=== PATIENT | female | born 1965 | race African-American/Black ===

== ENCOUNTER 2020-02-13 07:16 | Outpatient (NON) | payer OTHER, SELFPAY ==
[2020-02-13 19:22] LABS: SARS-CoV-2 RNA PCR Positive
== END 2020-02-13 07:17 ==
PROVIDERS: Visit Provider Clinical Nurse Specialist
DX: U07.1 COVID-19 (principal)
CPT/HCPCS: 87635; C9803; U0003

== ENCOUNTER → 2020-05-06 14:35 | Outpatient (CLI) | payer OTHER, SELFPAY ==
--- NOTE | ~2020-05-06 | MM_ITS ---
EXAMINATION: MM screening angella BI w geovanny HISTORY: Screening TECHNIQUE: Craniocaudal and mediolateral oblique 3-D tomosynthesis images were obtained and synthetic 2-D images were generated. CAD analysis was submitted and interpreted. COMPARISON: Comparison to multiple prior studies sequentially, with oldest reviewed study dated 06/30. BREAST PARENCHYMAL COMPOSITION: There are scattered areas of fibroglandular density. FINDINGS: There is no evidence of suspicious mass, calcification, or architectural distortion to sugg est malignancy in either breast. There has been no suspicious interval change. IMPRESSION: 1. No mammographic evidence of malignancy. 2. Recommend routine screening mammography in one year. BI-RADS Category 1: Negative Reviewed, dictated and finalized at location A.
== END ==
PROVIDERS: PCP Internal Medicine; Visit Provider Nurse Practitioner Obstetrics & Gynecology
DX: Z12.31 Encounter for screening mammogram for malignant neoplasm of breast (principal)
CPT/HCPCS: 77063; 77067

== ENCOUNTER → 2020-06-30 09:40 | Outpatient (CLI) | payer OTHER, SELFPAY ==
--- NOTE | ~2020-06-30 | XR_ITS ---
XR shoulder LT min 2V 06/30/2020 10:19 INDICATION: Left shoulder pain. PROCEDURE: 4 views left shoulder COMPARISON: FINDINGS: Fracture, dislocation or subluxation is not identified. The soft tissues appear within norm al limits. No foreign bodies are identified. IMPRESSION: 1: NO ACUTE BONE OR JOINT ABNORMALITY IDENTIFIED. Reviewed, dictated and finalized at Location A. Reviewed, dictated and finalized at location B. TREATER
== END ==
PROVIDERS: PCP Internal Medicine; Visit Provider Nurse Practitioner
DX: M25.512 Pain in left shoulder (principal)
CPT/HCPCS: 73030

== ENCOUNTER → 2020-08-19 16:59 | Outpatient (CLI) | payer OTHER, SELFPAY ==
--- NOTE | ~2020-08-19 | DEXA_ITS ---
Bone Density Report Name: José Cornejo Age: 54 Sex: Female Ethnicity: Black Date of : 1965 Indication: postmenopausal; screening for osteoporosis; height loss; asthma or emphysema; hysterectomy; Referring Provider: Clarita Wilson Study: Bone densitometry was performed. Exam Date: August 19, 2020 Accession number: [id number] Bone Density: Region BMD T-score Z-score Classification AP Spine (L1, L2, L3) 1.198 1.6 1.8 Normal Femoral Neck (Left) 1.146 2.7 2.1 Normal Total Hip (Left) 1.206 2.2 1.6 Normal Femoral Neck (Right) 1.164 2.8 2.2 Normal Total Hip (Right) 1.240 2.4 1.8 Normal Total Hip Mean 1.223 2.3 1.7 Normal World Health Organization criteria for BMD impression classify patients as: Normal (T-score at or above -1.0), Osteopenia (T-score between -1.0 and -2.5), or Osteoporosis (T-score at or below -2.5). 10-year Fracture Risk: FRAX not reported because: All T-scores for Spine Total, Hip Total, Femoral Neck at or above -1.0 Clinical Information Provided by Patient: Has used the following medications: Vitamin D, Calcium Has the following medical conditions: Asthma or Emphysema, Hysterectomy Patient maximum height was 69 Menopause Age: 46 Drinks caffeinated beverages Onset of menses at age 9 Number of children 4 Impression: The patient has normal bone mass. Discussion: BONE DENSITY IS ABOVE THE MINIMUM DESIRABLE LEVEL AT ALL SKELETAL SITES TESTED. This patient?s bone mineral density is above the minimum desirable level (T-score -1.0 or better) at all sites measured. The patient should follow a healthful lifestyle (good nutrition with adequate calcium and vitamin D, and appropriate weight-bearing exercise). Follow-Up: Consider repeating this study in 5 years or sooner if there is some new clinical indication. Reported by: ANAMIKA on 08/19/2020 5:28:00 PM. Reviewed, dictated and finalized at location AOrly LENNON
== END ==
PROVIDERS: Visit Provider Nurse Practitioner
DX: Z78.0 Asymptomatic menopausal state (principal)
CPT/HCPCS: 77080

== ENCOUNTER → 2021-07-21 15:56 | Outpatient (CLI) | payer OTHER, SELFPAY ==
--- NOTE | ~2021-07-21 | MM_ITS ---
EXAMINATION: MM screening angella BI w geovanny HISTORY: Screening TECHNIQUE: Craniocaudal and mediolateral oblique 3-D tomosynthesis images were obtained and synthetic 2-D images were generated. CAD analysis was submitted and interpreted. COMPARISON: Comparison to multiple prior studies sequentially, with oldest reviewed study dated 08/18. BREAST PARENCHYMAL COMPOSITION: There are scattered areas of fibroglandular density. FINDINGS: There is a new focal asymmetry in the upper outer quadrant of the left breast. The right br east is stable without evidence for malignancy. IMPRESSION: 1. New focal left breast asymmetry, upper outer quadrant. 2. Additional mammographic views and possible breast ultrasound are recommended. BI-RADS Category 0: Incomplete: Needs additional imaging evaluation. Reviewed, dictated and finalized at location A. ER PLANT SUPERVISOR IMPRESSION: 1. New focal left breast asymmetry, upper outer quadrant. 2. Additional mammographic views and possible breast ultrasound are recommended . BI-RADS Category 0: Incomplete: Needs additional imaging evaluation.
== END ==
PROVIDERS: PCP Internal Medicine; Visit Provider Internal Medicine
DX: Z12.31 Encounter for screening mammogram for malignant neoplasm of breast (principal); R92.8 Other abnormal and inconclusive findings on diagnostic imaging of breast
CPT/HCPCS: 77063; 77067

== ENCOUNTER → 2021-07-27 09:40 | Outpatient (CLI) | payer OTHER, SELFPAY ==
--- NOTE | ~2021-07-27 | MMUS_ITS ---
EXAMINATION: MM diagnostic angella LT w geovanny, US breast LT limited HISTORY: Follow-up left breast asymmetry TECHNIQUE: Additional 3-D tomosynthesis images of the left breast were performed and synthetic 2-D im ages were generated. CAD analysis was submitted and interpreted. High resolution Limited left breast ultrasound was performed. COMPARISON: 07/21/2021 BREAST PARENCHYMAL COMPOSITION: Breast composed of scattered areas of fibroglandular density. FINDINGS: MAMMOGRAPHIC FINDINGS: The focal asymmetry laterally in the left breast compresses with spot views. No suspicious masses, ca lcifications or architectural distortion are identified to suggest malignancy. ULTRASOUND: Limited left breast ultrasound: Normal heterogeneous echotexture in the upper outer quadrant of the l eft breast. IMPRESSION: 1. No evidence for malignancy in the left breast. 2. Routine yearly screening mammogram and regular clinical breast examination are recommended. BI-RADS Category 1: Negative Reviewed, dictated and finalized at location A. EM ADMIN IMPRESSION: 1. No evidence for malignancy in the left breast. 2. Routine yearly screening mammogram and regular clinical breast examination a re recommended. BI-RADS Category 1: Negative
== END ==
PROVIDERS: PCP Internal Medicine; Visit Provider Internal Medicine
DX: R92.8 Other abnormal and inconclusive findings on diagnostic imaging of breast (principal)
CPT/HCPCS: 76642; 77061; 77065; G0279

== ENCOUNTER 2022-06-15 14:57 | Outpatient (CLI) | payer OTHER, SELFPAY ==
[2022-06-15 16:49] LABS: Anion Gap 12 mmol/L (8-16); Blood Urea Nitrogen 10 mg/dL (7-17); Calcium 10.1 mg/dL (8.4-10.2); Carbon Dioxide 28 mmol/L (22-30); Chloride 100 mmol/L (98-107); Estimated Glomerular Filt Rate > 60; Glucose 166 mg/dL (65-110); HDL Direct 59 mg/dL; Potassium 3.6 mmol/L (3.4-5.0); Sodium 140 mmol/L (137-145)
[2022-06-15 17:00] LABS: LDL Cholesterol Direct 53 mg/dL
[2022-06-15 17:22] LABS: Thyroid Stimulating Hormone 0.928 uIU/mL (0.465-4.680)
[2022-06-15 17:37] LABS: Creatinine Urine 35.2 mg/dL
[2022-06-15 18:09] LABS: Microalbumin Urine Random < 6.0 mg/L (0-16.7)
[2022-06-15 18:10] LABS: MALB Creatinine Ratio < 17.0 mg/g (0-30)
== END 2022-06-15 14:58 | disposition home or self-care (01) ==
LOC: ANHWCLAB 14:59
PROVIDERS: PCP Internal Medicine; Visit Provider Internal Medicine Endocrinology, Diabetes & Metabolism
DX: E78.5 Hyperlipidemia, unspecified (principal); E11.65 Type 2 diabetes mellitus with hyperglycemia; Z78.0 Asymptomatic menopausal state
CPT/HCPCS: 36415; 80048; 82043; 82607; 83718; 83721; 84443

== ENCOUNTER → 2022-09-08 11:58 | Outpatient (CLI) | payer OTHER, SELFPAY ==
--- NOTE | ~2022-09-08 | MM_ITS ---
EXAMINATION: MM screening angella BI w geovanny HISTORY: Screening mammogram TECHNIQUE: Craniocaudal and mediolateral oblique 3-D tomosynthesis images were obtained and synthetic 2-D images were generated. CAD analysis was submitted and interpreted. COMPARISON: 07/27/2021 diagnostic left mammogram and limited left breast ultrasound examination BREAST PARENCHYMAL COMPOSITION: The breasts are almost entirely fatty. FINDINGS: There is no evidence of suspicious mass, calcification, or architectural distortion to sugg est malignancy in either breast. There has been no suspicious interval change. IMPRESSION: 1. No mammographic evidence of malignancy. 2. Recommend routine screening mammography in one year. BI-RADS Category 1: Negative Reviewed, dictated and finalized at location A. NG MACHINE TENDER
== END ==
PROVIDERS: PCP Internal Medicine; Visit Provider Internal Medicine
DX: Z12.31 Encounter for screening mammogram for malignant neoplasm of breast (principal)
CPT/HCPCS: 77063; 77067

== ENCOUNTER 2022-12-28 15:25 | Emergency (ER) | payer OTHER, SELFPAY ==
--- NOTE | ~2022-12-28 | XR_ITS ---
EXAMINATION: XR hand LT min 3V DATE: 12/28/2022 17:35 INDICATION: Laceration to the left fifth digit TECHNIQUE: Posteroanterior, oblique and lateral views of the left hand were obtained. COMPARISON: None. FINDINGS: Alignment is normal. No fracture. Joint spaces are normal. Lucency is seen in the soft tissues at the base of the left fifth digit likely related to reported laceration. No evident radiopaque foreign nay dies. Portions of the distal ulna is obscured on the dorsal palmar and oblique projections by the sup erimposed watch. IMPRESSION: 1. No radiopaque foreign body or osseous abnormality. Reviewed, dictated and finalized at location A.
[2022-12-28 15:26] VITALS: BP 144/99; PULSE 82; RESP 18; TEMP 36.6; O2SAT 99
--- NOTE | 2022-12-28 17:15 | ED.WOUNDLAC ---
HPI - Wound/Laceration General Chief Complaint: Wound/Laceration Stated Complaint: finger laceration Time Seen by Provider: 12/28/22 17:00 History of Present Illness HPI narrative: 57-year-old female with history of type 2 diabetes reports for evaluation of a laceration to her left fifth digit that occurred 2 hours prior to arrival. Patient states she was cutting avocado and accidentally cut herself. She reports some paresthesias at the distal aspect of her fifth digit, however attributes this to the tightness of her pressure bandage. Bleeding is controlled. She is not on anticoagulants. She does not report difficulty with moving her finger. Tetanus is up-to-date within the past year. Related Data Home Medications Medication Instructions Recorded Confirmed loratadine 10 mg capsule (Claritin 10 mg PO DAILY 07/16/19 12/20/22 Liqui-Gel) montelukast 10 mg tablet 10 mg PO DAILY 07/16/19 12/20/22 olopatadine 0.6 % nasal spray 1 spray intranasal PRN PRN Allergy 07/16/19 12/20/22 Symptoms black cohosh 20 mg tablet 20 mg PO BID 10/16/19 12/20/22 clobetasol 0.05 % topical ointment 1 applic topical PRN Itching 11/07/19 12/20/22 diphenhydramine HCl 25 mg capsule 25 mg PO Q4-6H PRN ALLERGIES 11/07/19 12/20/22 (Benadryl) fluticasone propionate 50 1 spray intranasal DAILY PRN 11/07/19 12/20/22 mcg/actuation nasal allergy symptoms spray,suspension (Allergy Relief (fluticasone)) mometasone 50 mcg/actuation nasal 2 spray intranasal DAILY PRN 11/07/19 12/20/22 spray (Nasonex) allergy symptoms albuterol sulfate 90 mcg/actuation 2 puff inhalation Q4-6H PRN 01/22/20 12/20/22 aerosol inhaler (ProAir HFA) Allergies Allergy/AdvReac Type Severity Reaction Status Date / Time dapagliflozin [From [facility]] Allergy Unknown vaginal Verified 12/20/22 10:00 swelling tuberculin,PPD,multi-puncture Allergy Unknown EXTREME Verified 12/20/22 10:00 ARM SWELLING [place] [employer] Allergy Rash Verified 12/20/22 10:00 Review of Systems Review of Systems: CONSTITUTIONAL: Denies fever, chills EYES: Denies visual changes, redness, or discharge. ENT: Denies rhinorrhea, congestion, sore throat, or otalgia. CARDIOVASCULAR: Denies chest pain, palpitations, or edema. RESPIRATORY: Denies cough or dyspnea. GASTROINTESTINAL: Denies abdominal pain, nausea, vomiting, or diarrhea. GENITOURINARY: Denies dysuria or hematuria. SKIN: See HPI MUSCULOSKELETAL: Denies back pain, joint pain, or myalgia. NEUROLOGIC: Denies headache, numbness, dizziness, or weakness. PSYCHIATRIC: Denies anxiety or depression. [facility] Past Medical History Medical History BMI 28.0-28.9,adult Depression Essential hypertension Hyperlipidemia Postmenopausal Symptomatic cholelithiasis Type 2 diabetes mellitus with hyperglycemia, without long-term current use of insulin Surgical History Surgical History H/O: hysterectomy History of cholecystectomy 2018 History of hand surgery 2012, right hand Family History Family History Mother Hypertension Family history of diabetes mellitus in first degree relative Family history of type 2 diabetes mellitus Father Family history of diabetes mellitus in first degree relative Family history of type 2 diabetes mellitus Other Diabetes mellitus Family history of malignant neoplasm Family history of osteoporosis Social History Social History Smoking status: Never smoker Alcohol intake: current Drinks per week: 2 Substance use: never Lack of Transportation: No Lack of Food: Never True Current Housing: I Have Housing Concerned About Future Housing: No Difficulty Paying Gas/Electric Bills: No Currently Unemployed: No Education: Decline to Answer Difficulty
[2022-12-28] MEDS: LIDOCAINE HCL 1% LOCAL INJ 10 ML VIAL 5 ML INFILTRATE (18:15)
== END 2022-12-28 19:01 | disposition home or self-care (01) ==
PROVIDERS: Emergency Provider Physician Assistant; PCP Internal Medicine
DX: S61.217A Laceration without foreign body of left little finger without damage to nail, initial encounter (principal); I10 Essential (primary) hypertension; E78.5 Hyperlipidemia, unspecified; E11.9 Type 2 diabetes mellitus without complications; Z90.49 Acquired absence of other specified parts of digestive tract; Z90.710 Acquired absence of both cervix and uterus; Z79.84 Long term (current) use of oral hypoglycemic drugs; Z79.85 Long-term (current) use of injectable non-insulin antidiabetic drugs; Z79.4 Long term (current) use of insulin; W26.9XXA Contact with unspecified sharp object(s), initial encounter; Y93.G1 Activity, food preparation and clean up
CPT/HCPCS: 12001; 73130; 99283

== ENCOUNTER 2023-10-23 09:52 | Outpatient (CLI) | payer OTHER, SELFPAY ==
--- NOTE | ~2023-10-23 | MM_ITS ---
EXAMINATION: MM screening angella BI w geovanny HISTORY: Screening mammogram TECHNIQUE: Craniocaudal and mediolateral oblique 3-D tomosynthesis images were obtained and synthetic 2-D images were generated. CAD analysis was submitted and interpreted. COMPARISON: September 08, 2022 bilateral screening mammogram July 27, 2021 diagnostic mammogram and limited left breast ultrasound BREAST PARENCHYMAL COMPOSITION: The breasts are almost entirely fatty. FINDINGS: There is no evidence of suspicious mass, calcification, or architectural distortion to sugg est malignancy in either breast. There has been no suspicious interval change. IMPRESSION: 1. No mammographic evidence of malignancy. 2. Recommend routine screening mammography in one year. BI-RADS Category 1: Negative Reviewed, dictated and finalized at location A.
== END 2023-10-23 09:53 ==
LOC: MICIMG 09:53
PROVIDERS: PCP Internal Medicine; Visit Provider Internal Medicine
DX: Z12.31 Encounter for screening mammogram for malignant neoplasm of breast (principal)
CPT/HCPCS: 77063; 77067

== ENCOUNTER 2024-11-27 07:29 | Outpatient (CLI) | payer OTHER, SELFPAY ==
--- NOTE | ~2024-11-27 | MM_ITS ---
EXAMINATION: MM screening angella BI w geovanny HISTORY: Screening TECHNIQUE: Craniocaudal and mediolateral oblique 3-D tomosynthesis images were obtained and synthetic 2-D images were generated. CAD analysis was submitted and interpreted. COMPARISON: Comparison to multiple prior studies sequentially, with oldest reviewed study dated 2018. BREAST PARENCHYMAL COMPOSITION: Not Dense: The breasts are almost entirely fatty. FINDINGS: There is a new focal asymmetry medially in the right breast, middle third on CC view. No co rresponding abnormality is definitely seen on MLO view. The left breast is stable without evidence fo r malignancy. IMPRESSION: 1. New focal right breast asymmetry medial breast, on CC view, middle third. 2. Additional mammographic views and possible breast ultrasound are recommended. BI-RADS Category 0: Incomplete: Needs additional imaging evaluation. Reviewed, dictated and finalized at location A. IMPRESSION: 1. New focal right breast asymmetry medial breast, on CC view, middle third. 2. Additional mammographic views and possible breast ultrasound are recommended . BI-RADS Category 0: Incomplete: Needs additional imaging evaluation.
== END 2024-11-27 07:30 | disposition home or self-care (01) ==
PROVIDERS: PCP Internal Medicine; Visit Provider Internal Medicine
DX: Z12.31 Encounter for screening mammogram for malignant neoplasm of breast (principal); R92.8 Other abnormal and inconclusive findings on diagnostic imaging of breast
CPT/HCPCS: 77063; 77067

== ENCOUNTER 2024-12-16 08:49 | Outpatient (CLI) | payer OTHER, SELFPAY ==
--- NOTE | ~2024-12-16 | MMUS_ITS ---
EXAMINATION: MM diagnostic angella RT w geovanny, US breast RT limited HISTORY: Follow-up right breast asymmetry TECHNIQUE: Additional 3-D tomosynthesis images of the right breast were performed and synthetic 2-D i mages were generated. CAD analysis was submitted and interpreted. High resolution Limited right breas t ultrasound was performed. COMPARISON: Comparison to multiple prior studies sequentially, with oldest reviewed study dated 02/2020. BREAST PARENCHYMAL COMPOSITION: Not dense: There are scattered areas of fibroglandular density. FINDINGS: MAMMOGRAPHIC FINDINGS: There is a focal low density asymmetry in the upper inner quadrant of the right breast, anterior-midd le depth and approximately 1:00 position. There are no suspicious calcifications or architectural dis tortion. The asymmetry is less dense with spot compression CC view, likely benign. ULTRASOUND: Limited right breast ultrasound: At 2:00, 5 cm from the nipple there is a slightly irregular shaped c ystic mass measuring 2-3 mm with a tubular appearance on serial images. This has a benign appearance and may represent a small cluster of microcysts or focal dilated duct. No sonographic evidence for ma lignancy in the right breast. IMPRESSION: 1. No evidence for malignancy in the right breast. Benign findings. 2. Routine yearly screening mammogram and regular clinical breast examination are recommended. BI-RADS Category 2: Benign finding(s). Reviewed, dictated and finalized at location B. IMPRESSION: 1. No evidence for malignancy in the right breast. Benign findings. 2. Routine yearly screening mammogram and regular clinical breast examination a re recommended. BI-RADS Category 2: Benign finding(s).
== END 2024-12-16 08:50 | disposition home or self-care (01) ==
LOC: MICIMG 08:50
PROVIDERS: PCP Internal Medicine; Visit Provider Internal Medicine
DX: R92.8 Other abnormal and inconclusive findings on diagnostic imaging of breast (principal)
CPT/HCPCS: 76642; 77061; 77065; G0279